=== PATIENT | male | born 1980 | race Caucasian/White ===

== ENCOUNTER 2020-03-19 09:37 | Inpatient (IN) | payer OTHER ==
[2020-03-19] MEDS ORDERED: MELATONIN 5 MG TABLETS PO PRN (13:14)
[2020-03-19] MEDS ORDERED: MAGNESIUM CITRATE 300 ML BOTTLE PO PRN (13:14)
[2020-03-19] MEDS ORDERED: METHOCARBAMOL 500 MG TABLET PO PRN (13:14)
[2020-03-19] MEDS ORDERED: MENTHOL/PHENOL 1 EACH UD MM PRN (13:14)
[2020-03-19] MEDS ORDERED: MAG HYDROX/AL HYDROX/SIMETH 30 ML UNIT-DOSE CUP PO PRN (13:14)
[2020-03-19] MEDS ORDERED: IBUPROFEN 400 MG TABLET (FP) PO PRN (13:14)
[2020-03-19] MEDS ORDERED: BISMUTH SUBSALICYLATE 524 MG/30 ML UD PO PRN (13:14)
[2020-03-19] MEDS ORDERED: ONDANSETRON *ODT* 4 MG TABLET SL PRN (13:14)
[2020-03-19] MEDS ORDERED: hydrOXYzine PAMOATE 25 MG CAPSULE (FP) PO PRN (13:14)
[2020-03-19] MEDS ORDERED: ACETAMINOPHEN 325 MG TABLET (FP) PO PRN ×2 (13:14)
[2020-03-19] MEDS ORDERED: MAGNESIUM HYDROX 2400MG/30ML ORAL SUSPENSION 30 ML CUP PO PRN (13:14)
[2020-03-19] MEDS ORDERED: chlordiazePOXIDE HCL 25 MG CAPSULE PO PRN (13:16)
[2020-03-19] MEDS ORDERED: chlordiazePOXIDE HCL 25 MG CAPSULE PO ONE (13:16)
[2020-03-19] MEDS ORDERED: LORazepam 1 MG TABLET PO PRN (13:55)
[2020-03-19] MEDS ORDERED: LORazepam 2 MG TABLET PO ONE (13:55)
[2020-03-19 13:58] VITALS: BMI 26.7
[2020-03-19] MEDS ORDERED: chlordiazePOXIDE HCL 25 MG CAPSULE PO SCH (17:00)
[2020-03-19] MEDS ORDERED: MASKS NR ONE (17:01)
[2020-03-19] MEDS: LORazepam 2 MG TABLET PO SCH ×2 (17:14→22:19)
[2020-03-19] MEDS ORDERED: INSULIN SLIDING SCALE (NOVOLOG) 1 VIAL SQ ONE (17:32)
[2020-03-19] MEDS: INSULIN SLIDING SCALE (NOVOLOG) 1 VIAL SQ SCH (17:35)
[2020-03-19] MEDS ORDERED: THIAMINE HCL 100 MG TABLET (FP) PO SCH (22:00)
[2020-03-20] MEDS: LORazepam 2 MG TABLET PO SCH ×3 (06:51→17:59)
[2020-03-20] MEDS: INSULIN SLIDING SCALE (NOVOLOG) 1 VIAL SQ SCH ×2 (07:05→17:58)
[2020-03-20 09:20] LABS: POTASSIUM 3.6 mmol/L (3.5-5.1)
[2020-03-20 09:21] LABS: HEMATOCRIT 25.4 % (35.4-49); MCH 21.8 pg (25.7-33.7); MCHC 31.6 g/dl (32.0-35.9); MEAN CELL VOLUME 69.1 fl (80-96); MEAN PLT VOLUME 8.2 fl (7.5-11.1); RBC 3.68 M/mm3 (4.00-5.60); RDW 16.3 % (11.9-15.9)
[2020-03-20 09:23] LABS: CALCIUM 8.5 mg/dL (8.5-10.1)
[2020-03-20 09:24] LABS: ALBUMIN 3.2 g/dl (3.4-5.0); BLOOD UREA NITROGEN 13.3 mg/dL (7-18)
[2020-03-20 09:27] LABS: CREATININE 0.5 mg/dL (0.55-1.3)
[2020-03-20 09:28] LABS: BILIRUBIN,TOTAL 4.3 mg/dL (0.2-1)
[2020-03-20 09:29] LABS: TOT PROT 7.4 g/dl (6.4-8.2)
[2020-03-20 09:32] LABS: PLATELET COUNT 24 K/MM3 (134-434); WHITE BLOOD COUNT 1.9 K/mm3 (4.0-10.0)
[2020-03-20] MEDS ORDERED: PRENATAL VITAMINS W/ FOLIC ACID TABLET (FP) PO SCH (10:00)
[2020-03-20 13:11] VITALS: BP 110/66; PULSE 93; TEMP 97.4
[2020-03-21] MEDS ORDERED: LORazepam 1 MG TABLET PO SCH (05:00)
[2020-03-21] MEDS ORDERED: chlordiazePOXIDE HCL 25 MG CAPSULE PO SCH (05:00)
[2020-03-22] MEDS ORDERED: LORazepam 0.5 MG TABLET PO PRN
[2020-03-22] MEDS ORDERED: chlordiazePOXIDE HCL 10 MG CAPSULE PO PRN
[2020-03-22] MEDS ORDERED: chlordiazePOXIDE HCL 10 MG CAPSULE PO SCH (05:00)
[2020-03-22] MEDS ORDERED: LORazepam 0.5 MG TABLET PO SCH (05:00)
[2020-03-23] MEDS ORDERED: LORazepam 0.5 MG TABLET PO ONE (05:00)
[2020-03-23] MEDS ORDERED: chlordiazePOXIDE HCL 10 MG CAPSULE PO SCH (05:00)
[2020-03-24] MEDS ORDERED: chlordiazePOXIDE HCL 10 MG CAPSULE PO ONE (05:00)
== END 2020-03-20 22:43 | disposition short-term general hospital (02) | DRG 775 ==
LOC: YASAS 09:37 → Y3N 13:57
PROVIDERS: ADMIT Allergy & Immunology; ATTEND Allergy & Immunology
PROC: HZ2ZZZZ Detoxification Services for Substance Abuse Treatment (ICD-10-PCS; principal; 2020-03-19)
DX: F10.230 Alcohol dependence with withdrawal, uncomplicated (principal); F10.280 Alcohol dependence with alcohol-induced anxiety disorder; F10.282 Alcohol dependence with alcohol-induced sleep disorder; R17 Unspecified jaundice; K72.90 Hepatic failure, unspecified without coma; I85.00 Esophageal varices without bleeding; R00.0 Tachycardia, unspecified
CPT/HCPCS: 36415; 80053; 82962; 85027; 86780; C9803; U0003

== ENCOUNTER 2020-03-20 13:59 | Inpatient (IN) | payer OTHER ==
[2020-03-20 15:11] LABS: BASO % 0.6 % (0-2.0); EOS % 2.2 % (0-4.5); HEMOGLOBIN 8.3 GM/dL (11.7-16.9); LYMPH % 29.1 % (8-40); MCH 22.1 pg (25.7-33.7); MCHC 31.8 g/dl (32.0-35.9); MEAN CELL VOLUME 69.4 fl (80-96); MEAN PLT VOLUME 8.2 fl (7.5-11.1); MONO % 8.9 % (3.8-10.2); NEUT % 59.2 % (42.8-82.8); RBC 3.75 M/mm3 (4.00-5.60); RDW 16.2 % (11.9-15.9)
[2020-03-20 15:14] LABS: PLATELET COUNT 27 K/MM3 (134-434)
[2020-03-20 15:18] LABS: INR 1.38 (0.83-1.09); PROTHROMBIN TIME (PATIENT) 16.8 SEC (9.7-13.0)
[2020-03-20 15:21] LABS: ACTIVATED PTT 32.8 SECONDS (25.2-36.5)
[2020-03-20 15:33] LABS: POTASSIUM 3.9 mmol/L (3.5-5.1)
[2020-03-20 15:35] LABS: CALCIUM 8.5 mg/dL (8.5-10.1)
[2020-03-20 15:36] LABS: ALBUMIN 3.4 g/dl (3.4-5.0); BLOOD UREA NITROGEN 12.1 mg/dL (7-18)
[2020-03-20 15:37] LABS: MAGNESIUM 1.8 mg/dL (1.8-2.4)
[2020-03-20 15:39] LABS: CREATININE 0.6 mg/dL (0.55-1.3)
[2020-03-20 15:40] LABS: BILIRUBIN,TOTAL 4.9 mg/dL (0.2-1)
[2020-03-20 15:41] LABS: TOT PROT 7.7 g/dl (6.4-8.2)
[2020-03-20] MEDS ORDERED: chlordiazePOXIDE HCL 25 MG CAPSULE PO ONE (16:37)
[2020-03-20] MEDS ORDERED: chlordiazePOXIDE HCL 25 MG CAPSULE ONE (17:19)
[2020-03-20] MEDS ORDERED: chlordiazePOXIDE HCL 25 MG CAPSULE PO PRN (18:15)
[2020-03-20] MEDS: SODIUM CHLORIDE 1,000 ML IV SCH (18:19)
[2020-03-20] MEDS ORDERED: FOLIC ACID 1 MG TABLET (FP) ONE (21:36)
[2020-03-21] MEDS: SODIUM CHLORIDE 1,000 ML IV SCH (00:38)
[2020-03-21] MEDS: FOLIC ACID 1 MG TABLET (FP) PO SCH ×2 (00:38→10:51)
[2020-03-21 02:22] VITALS: BMI 25.0
[2020-03-21] MEDS: chlordiazePOXIDE HCL 25 MG CAPSULE PO SCH ×4 (05:07→23:22)
[2020-03-21 09:43] LABS: HEMATOCRIT 26.5 % (35.4-49); HEMOGLOBIN 8.4 GM/dL (11.7-16.9); MCH 22.2 pg (25.7-33.7); MCHC 31.7 g/dl (32.0-35.9); MEAN CELL VOLUME 70.1 fl (80-96); MEAN PLT VOLUME 8.3 fl (7.5-11.1); RBC 3.79 M/mm3 (4.00-5.60); RDW 16.6 % (11.9-15.9)
[2020-03-21 09:49] LABS: INR 1.35 (0.83-1.09); PROTHROMBIN TIME (PATIENT) 16.2 SEC (9.7-13.0)
[2020-03-21 09:51] LABS: ACTIVATED PTT 35.3 SECONDS (25.2-36.5); POTASSIUM 3.7 mmol/L (3.5-5.1)
[2020-03-21 10:04] LABS: ALBUMIN 3.3 g/dl (3.4-5.0)
[2020-03-21 10:05] LABS: CALCIUM 8.6 mg/dL (8.5-10.1)
[2020-03-21 10:06] LABS: MAGNESIUM 1.8 mg/dL (1.8-2.4)
[2020-03-21 10:07] LABS: CREATININE 0.5 mg/dL (0.55-1.3)
[2020-03-21 10:08] LABS: BILIRUBIN,TOTAL 3.9 mg/dL (0.2-1); PHOSPHOROUS 3.9 mg/dL (2.5-4.9)
[2020-03-21 10:09] LABS: TOT PROT 7.7 g/dl (6.4-8.2)
[2020-03-21 10:15] LABS: BLOOD UREA NITROGEN 11.6 mg/dL (7-18)
[2020-03-21 10:16] LABS: WHITE BLOOD COUNT 1.7 K/mm3 (4.0-10.0)
[2020-03-21 10:17] LABS: PLATELET COUNT 25 K/MM3 (134-434)
[2020-03-21] MEDS: THIAMINE HCL 100 MG TABLET (FP) PO SCH (10:51)
[2020-03-22] MEDS ORDERED: chlordiazePOXIDE HCL 10 MG CAPSULE PO PRN
[2020-03-22 00:55] LABS: BASO % 0.8 % (0-2.0); HEMATOCRIT 26.2 % (35.4-49); HEMOGLOBIN 8.4 GM/dL (11.7-16.9); LYMPH % 34.2 % (8-40); MCH 22.5 pg (25.7-33.7); MCHC 32.2 g/dl (32.0-35.9); MEAN PLT VOLUME 8.6 fl (7.5-11.1); MONO % 9.8 % (3.8-10.2); NEUT % 52.2 % (42.8-82.8); RBC 3.75 M/mm3 (4.00-5.60); RDW 16.4 % (11.9-15.9); WHITE BLOOD COUNT 2.1 K/mm3 (4.0-10.0)
[2020-03-22 01:16] LABS: PLATELET COUNT 28 K/MM3 (134-434)
[2020-03-22] MEDS: chlordiazePOXIDE HCL 10 MG CAPSULE PO SCH ×4 (05:24→23:14)
[2020-03-22 09:33] LABS: BASO % 0.6 % (0-2.0); EOS % 2.4 % (0-4.5); HEMATOCRIT 26.2 % (35.4-49); HEMOGLOBIN 8.2 GM/dL (11.7-16.9); LYMPH % 32.5 % (8-40); MCH 22.1 pg (25.7-33.7); MCHC 31.3 g/dl (32.0-35.9); MEAN CELL VOLUME 70.7 fl (80-96); MEAN PLT VOLUME 8.9 fl (7.5-11.1); MONO % 10.7 % (3.8-10.2); NEUT % 53.8 % (42.8-82.8); RBC 3.71 M/mm3 (4.00-5.60); RDW 16.7 % (11.9-15.9)
[2020-03-22 09:36] LABS: POTASSIUM 3.7 mmol/L (3.5-5.1)
[2020-03-22 09:38] LABS: INR 1.28 (0.83-1.09); PROTHROMBIN TIME (PATIENT) 15.6 SEC (9.7-13.0)
[2020-03-22 09:40] LABS: ACTIVATED PTT 35.9 SECONDS (25.2-36.5)
[2020-03-22 09:50] LABS: ALBUMIN 3.4 g/dl (3.4-5.0); BLOOD UREA NITROGEN 11.8 mg/dL (7-18); CALCIUM 8.4 mg/dL (8.5-10.1)
[2020-03-22 09:52] LABS: MAGNESIUM 1.9 mg/dL (1.8-2.4); PLATELET COUNT 36 K/MM3 (134-434)
[2020-03-22 09:55] LABS: CREATININE 0.5 mg/dL (0.55-1.3); PHOSPHOROUS 4.4 mg/dL (2.5-4.9)
[2020-03-22 09:56] LABS: BILIRUBIN,TOTAL 3.8 mg/dL (0.2-1); TOT PROT 7.6 g/dl (6.4-8.2)
[2020-03-22] MEDS ORDERED: PANTOPRAZOLE SODIUM 40 MG VIAL IVPUSH SCH (10:00)
[2020-03-22] MEDS: NADOLOL 20 MG TABLET (FP) PO SCH (10:35)
[2020-03-22] MEDS: RIFAXIMIN 550 MG TABLET (UD) PO SCH ×2 (10:36→21:37)
[2020-03-22] MEDS: THIAMINE HCL 100 MG TABLET (FP) PO SCH (10:36)
[2020-03-22] MEDS: FOLIC ACID 1 MG TABLET (FP) PO SCH (10:36)
[2020-03-22 10:49] LABS: HIV INTERPRETATION NEGATIVE (NEGATIVE)
[2020-03-22 11:23] LABS: PLATELET ESTIMATE DECREASED
[2020-03-22 13:58] LABS: HEMATOCRIT 25.7 % (35.4-49); HEMOGLOBIN 8.1 GM/dL (11.7-16.9); MCH 22.3 pg (25.7-33.7); MCHC 31.5 g/dl (32.0-35.9); MEAN CELL VOLUME 70.9 fl (80-96); MEAN PLT VOLUME 8.8 fl (7.5-11.1); RBC 3.62 M/mm3 (4.00-5.60); RDW 16.5 % (11.9-15.9); WHITE BLOOD COUNT 2.3 K/mm3 (4.0-10.0)
[2020-03-22 14:03] LABS: PLATELET COUNT 34 K/MM3 (134-434)
[2020-03-22 14:13] LABS: INR 1.31 (0.83-1.09)
[2020-03-23] MEDS: chlordiazePOXIDE HCL 10 MG CAPSULE PO SCH ×2 (05:22→17:00)
[2020-03-23] MEDS ORDERED: SODIUM CHLORIDE NASAL SPRAY 44 ML BOTTLE NS PRN (08:07)
[2020-03-23 09:12] LABS: INR 1.29 (0.83-1.09); PROTHROMBIN TIME (PATIENT) 15.5 SEC (9.7-13.0)
[2020-03-23 09:13] LABS: EOS % 2.4 % (0-4.5); HEMATOCRIT 27.5 % (35.4-49); HEMOGLOBIN 8.7 GM/dL (11.7-16.9); LYMPH % 37.5 % (8-40); MCH 22.6 pg (25.7-33.7); MCHC 31.7 g/dl (32.0-35.9); MEAN CELL VOLUME 71.4 fl (80-96); MEAN PLT VOLUME 8.9 fl (7.5-11.1); MONO % 14.3 % (3.8-10.2); NEUT % 44.8 % (42.8-82.8); PLATELET COUNT 44 K/MM3 (134-434); RBC 3.86 M/mm3 (4.00-5.60); RDW 17.1 % (11.9-15.9); WHITE BLOOD COUNT 2.2 K/mm3 (4.0-10.0)
[2020-03-23] MEDS ORDERED: PT OWN MED DRAWER 7, Y5N ONE (09:33)
[2020-03-23] MEDS: NADOLOL 20 MG TABLET (FP) PO SCH (09:34)
[2020-03-23] MEDS: PANTOPRAZOLE 40 MG TABLET PO SCH (09:34)
[2020-03-23] MEDS: THIAMINE HCL 100 MG TABLET (FP) PO SCH (09:34)
[2020-03-23] MEDS: RIFAXIMIN 550 MG TABLET (UD) PO SCH ×2 (09:34→21:30)
[2020-03-23] MEDS: FOLIC ACID 1 MG TABLET (FP) PO SCH (09:34)
[2020-03-23 09:52] LABS: POTASSIUM 3.7 mmol/L (3.5-5.1)
[2020-03-23 10:20] LABS: ALBUMIN 3.4 g/dl (3.4-5.0); CALCIUM 8.6 mg/dL (8.5-10.1)
[2020-03-23 10:21] LABS: BLOOD UREA NITROGEN 14.5 mg/dL (7-18)
[2020-03-23 10:24] LABS: CREATININE 0.5 mg/dL (0.55-1.3)
[2020-03-23 10:25] LABS: MAGNESIUM 1.9 mg/dL (1.8-2.4); TOT PROT 7.6 g/dl (6.4-8.2)
[2020-03-23 10:26] LABS: PHOSPHOROUS 4.3 mg/dL (2.5-4.9)
[2020-03-23 10:27] LABS: BILIRUBIN,TOTAL 2.5 mg/dL (0.2-1)
[2020-03-23 13:29] LABS: HEMATOCRIT 30.5 % (35.4-49); HEMOGLOBIN 9.6 GM/dL (11.7-16.9); MCH 22.4 pg (25.7-33.7); MCHC 31.5 g/dl (32.0-35.9); MEAN CELL VOLUME 71.1 fl (80-96); MEAN PLT VOLUME 8.4 fl (7.5-11.1); PLATELET COUNT 60 K/MM3 (134-434); RBC 4.28 M/mm3 (4.00-5.60); RDW 17.3 % (11.9-15.9); WHITE BLOOD COUNT 3.7 K/mm3 (4.0-10.0)
[2020-03-24] MEDS ORDERED: chlordiazePOXIDE HCL 10 MG CAPSULE PO ONE (05:00)
[2020-03-24 08:37] LABS: BASO % 0.9 % (0-2.0); EOS % 2.2 % (0-4.5); HEMATOCRIT 26.3 % (35.4-49); HEMOGLOBIN 8.2 GM/dL (11.7-16.9); LYMPH % 33.4 % (8-40); MCH 22.5 pg (25.7-33.7); MCHC 31.2 g/dl (32.0-35.9); MEAN PLT VOLUME 8.7 fl (7.5-11.1); MONO % 19.9 % (3.8-10.2); NEUT % 43.6 % (42.8-82.8); PLATELET COUNT 42 K/MM3 (134-434); RBC 3.65 M/mm3 (4.00-5.60); RDW 16.9 % (11.9-15.9); WHITE BLOOD COUNT 2.8 K/mm3 (4.0-10.0)
[2020-03-24 08:54] LABS: POTASSIUM 3.8 mmol/L (3.5-5.1)
[2020-03-24 08:56] LABS: CALCIUM 8.1 mg/dL (8.5-10.1)
[2020-03-24 08:57] LABS: MAGNESIUM 1.8 mg/dL (1.8-2.4)
[2020-03-24 08:58] LABS: ALBUMIN 3.1 g/dl (3.4-5.0); BLOOD UREA NITROGEN 15.5 mg/dL (7-18)
[2020-03-24 09:00] LABS: CREATININE 0.5 mg/dL (0.55-1.3)
[2020-03-24 09:01] LABS: TOT PROT 7.4 g/dl (6.4-8.2)
[2020-03-24] MEDS: FOLIC ACID 1 MG TABLET (FP) PO SCH (09:12)
[2020-03-24] MEDS: PANTOPRAZOLE 40 MG TABLET PO SCH (09:12)
[2020-03-24] MEDS: NADOLOL 20 MG TABLET (FP) PO SCH (09:12)
[2020-03-24] MEDS: THIAMINE HCL 100 MG TABLET (FP) PO SCH (09:12)
[2020-03-24] MEDS: RIFAXIMIN 550 MG TABLET (UD) PO SCH (09:12)
[2020-03-24 15:15] VITALS: BP 118/75; PULSE 77; TEMP 97.6
== END 2020-03-24 15:49 | disposition home or self-care (01) | DRG 279 ==
LOC: JER 13:59 → JERBED 16:58 → J6S 22:10
PROVIDERS: ADMIT Internal Medicine; ATTEND Internal Medicine
PROC: HZ2ZZZZ Detoxification Services for Substance Abuse Treatment (ICD-10-PCS; principal; 2020-03-20)
PROC: 30233R1 Transfusion of Nonautologous Platelets into Peripheral Vein, Percutaneous Approach (ICD-10-PCS; 2020-03-22)
DX: K72.90 Hepatic failure, unspecified without coma (principal); D61.818 Other pancytopenia; F10.239 Alcohol dependence with withdrawal, unspecified; K70.30 Alcoholic cirrhosis of liver without ascites; T50.995A Adverse effect of other drugs, medicaments and biological substances, initial encounter; R04.0 Epistaxis; E09.65 Drug or chemical induced diabetes mellitus with hyperglycemia; I85.00 Esophageal varices without bleeding; D69.6 Thrombocytopenia, unspecified; F10.230 Alcohol dependence with withdrawal, uncomplicated; D68.9 Coagulation defect, unspecified
CPT/HCPCS: 36415; 36430; 71045-TC-FY; 80053; 82105; 82140; 82272; 82962; 83605; 83690; 83735; 84100; 85025; 85027; 85610; 85730; 86850; 86900; 86901; 87389; 93005; 93010; 99285-25; P9034